=== PATIENT | male | born 1955 | race Caucasian/White ===

== ENCOUNTER 2016-10-25 16:14 | Emergency (ER) | payer BC ==
[~2016-10-25] VITALS: Ht 175.3 cm; Wt 66.0 kg
[~2016-10-25 16:14] MED LIST: ASPI81 PO; BISO1TAB6 PO; BUPR100CR PO; MERC50TA PO; RANI150T PO; SIMV20TA PO
[2016-10-25 16:17] VITALS: BP 116/73; PULSE 66; RESP 18; TEMP 98.7; O2SAT 97
[2016-10-25] MEDS ORDERED: SIMV20TA PO (16:50)
[2016-10-25] MEDS ORDERED: BISO5TAB5 PO (16:50)
[2016-10-25] MEDS ORDERED: ASPI1TAB69 PO (16:50)
[2016-10-25] MEDS ORDERED: RANI150T PO (16:50)
[2016-10-25] MEDS ORDERED: MERC50TA PO (16:50)
[2016-10-25] MEDS ORDERED: LEXA10TA PO (16:50)
--- NOTE | 2016-10-25 16:50 | PD ---
HPI Chief Complaint: Laceration/Skin Injury Time Seen by Provider: 16:42 Travel History International Travel<30 days: No Contact w/Intl Traveler<30days: No Traveled to known affect area: No History of Present Illness HPI 61-year-old male presents for evaluation laceration to the distal anterior right thigh. This morning at 9 AM he was cutting with a piece of drywall when the knife slipped and punctured his skin. He now has a wound proximal to the right knee. Minimal pain. Minimal bleeding. No numbness or tingling or weakness distal to the injury site. Last tetanus vaccination 2 years ago. No other complaints. PFSH Past Medical History Cancer: Yes (Bladder) Cardiac Catheterization: Yes High Cholesterol: Yes Coronary Artery Disease: Yes Diminished Hearing: No Gastrointestinal Disorders: Yes (CROHNS) Hypertension: Yes Myocardial Infarction: Yes LMP: 9 Past Surgical History Abdominal Surgery: Yes (BOWEL RESECTION X 3) Coronary Stent: Yes Other Surgery: Yes (FINGER AMPUTATION) Social History Alcohol Use: No Tobacco Use: Yes (1PPD) Substance Use: No Allergies-Medications (Allergen,Severity, Reaction): Coded Allergies: Cipro (Verified Allergy, Intermediate, Itching, 10/25/16) FEELS FLUSHED Reported Meds & Prescriptions Reported Meds & Active Scripts Active Reported Lexapro (Escitalopram Oxalate) 10 Mg Tab 10 Mg PO DAILY Aspirin 81 Mg Tabdr 162 Mg PO DAILY Simvastatin 20 Mg Tab 20 Mg PO DAILY Ranitidine (Ranitidine HCl) 150 Mg Tab 150 Mg PO DAILY Mercaptopurine 50 Mg Tab 50 Mg PO DAILY Bisoprolol (Bisoprolol Fumarate) 5 Mg Tab 5 Mg PO DAILY Review of Systems Musculoskeletal: No: Limited ROM, Pain Skin: Positive Other (positive for laceration, bleeding) Physical Exam Narrative GENERAL: Well-nourished male in no acute distress SKIN: Warm and dry. 1 cm laceration to the anterior distal medial right thigh proximal to the knee joint. Extremities: Skin as noted above. No obvious foreign body. The patient maintains full range of motion of the right knee. No bony tenderness to palpation. Data Data Last Documented VS Vital Signs Date Time Temp Pulse Resp B/P Pulse Ox O2 Delivery O2 Flow Rate FiO2 10/25/16 16:17 98.7 66 18 116/73 97 Orders Lidocai-Epi 1%-1:100,000 Inj (Xylocaine- (10/25/16 17:00) [facility] Medical Decision Making Medical Screen Exam Complete: Yes Emergency Medical Condition: Yes Medical Record Reviewed: Yes Differential Diagnosis Laceration, foreign body, open fracture Narrative Course Laceration will be repaired with sutures, he verbally consents. He is stable for discharge. Procedures Procedure Narrative LACERATION LOCATION: Right leg LENGTH: 1 cm NUMBER OF STITCHES/COLEMAN: 3 REPAIR: The area of the laceration was prepped with Betadine and sterilely draped. The laceration was infiltrated with 1% lidocaine with epinephrine. The wound was copiously irrigated and explored without evidence of foreign body , tendon injury or neurovascular injury. The wound was closed using 4-0 prolene simple interrupted. This was a single layer repair. A sterile dressing was applied. The patient was advised to keep the dressing clean and dry. Patient tolerated the procedure well. Diagnosis Primary Impression: Laceration of right lower extremity Qualified Code: S81.811A - Laceration of right lower extremity, initial encounter Additional Instructions: Wash daily with soap and water and apply antibiotic cream daily. Return in 14- 18 days for suture removal. Med/Other Pt SpecificInfo: Wound Care Disposition: DISCHARGE HOME Condition: Stable Mike Ayala Oct 25, 2016 16:50
[2016-10-25] MEDS ORDERED: LIDOCAINE 1%/EPINEPHrine 1:100,000 SOLN 20 ML VIAL INFIL ONE (17:00)
== END 2016-10-25 17:19 | disposition home or self-care (01) ==
LOC: PHED 16:14 → PHEFT 17:19
DX: S81.811A Laceration without foreign body, right lower leg, initial encounter (principal); W26.0XXA Contact with knife, initial encounter
CPT/HCPCS: 12001